=== PATIENT | female | born 2000 | race Caucasian/White ===

== ENCOUNTER 2020-03-18 21:52 | Emergency (ER) | payer OTHER, SELFPAY ==
[2020-03-18] MEDS ORDERED: Neomycin-Polymyxin-Hc 7.5 ML BOT ONE (22:24)
== END 2020-03-18 22:35 | disposition home or self-care (01) ==
LOC: NAV ERS 21:52
DX: H60.502 Unspecified acute noninfective otitis externa, left ear (principal); F41.9 Anxiety disorder, unspecified; F32.9 Major depressive disorder, single episode, unspecified
CPT/HCPCS: 99282